=== PATIENT | female | born 1985 | race Caucasian/White ===

== ENCOUNTER 2019-12-18 09:18 | Outpatient (CLI) | payer OTHER | END 2019-12-18 09:22 | disposition home or self-care (01) | LOC: LAB 09:18 | PROVIDERS: ATTEND Emergency Medicine Pediatric Emergency Medicine | DX: Z03.818 Encounter for observation for suspected exposure to other biological agents ruled out (principal) ==

== ENCOUNTER 2020-06-03 14:22 | Outpatient (CLI) | payer OTHER | END 2020-06-03 14:31 | disposition home or self-care (01) | LOC: LAB 14:22 | PROVIDERS: ATTEND Pediatrics Neonatal-Perinatal Medicine | DX: Z32.00 Encounter for pregnancy test, result unknown (principal) ==

== ENCOUNTER 2020-09-04 23:26 | Emergency (ER) | payer OTHER ==
[~2020-09-04] VITALS: Ht 162.6 cm; Wt 79.8 kg
[2020-09-04] MEDS ORDERED: PRENATAL 19 CH1 EAC1 (23:44)
[2020-09-05] MEDS ORDERED: ACETAMINOPHEN650 M2 PO (04:34)
[2020-09-05] MEDS ORDERED: MACROBID 100 M100 MG PO (04:34)
== END 2020-09-05 04:43 | disposition home or self-care (01) ==
LOC: ER 23:26
DX: O23.42 Unspecified infection of urinary tract in pregnancy, second trimester (principal); M54.5 Low back pain; Z34.82 Encounter for supervision of other normal pregnancy, second trimester

== ENCOUNTER 2021-02-02 05:50 | Inpatient (IN) | payer OTHER ==
[~2021-02-02] VITALS: Ht 165.1 cm; Wt 86.2 kg
[~2021-02-02 05:50] MED LIST: ACETAMINOPHEN650 M2 PO; MACROBID 100 M100 MG PO; PRENATAL 19 CH1 EAC1
[2021-02-03] MEDS ORDERED: FUROSEMIDE20 MG (15:48)
== END 2021-02-04 14:29 | disposition home or self-care (01) | DRG 807 ==
LOC: LDR 05:50 → OB/GYN 02-03 14:19
PROVIDERS: ADMIT Obstetrics & Gynecology; ATTEND Obstetrics & Gynecology
PROC: 10E0XZZ Delivery of Products of Conception, External Approach (ICD-10-PCS; principal; 2021-02-02)
PROC: 3E033VJ Introduction of Other Hormone into Peripheral Vein, Percutaneous Approach (ICD-10-PCS; 2021-02-02)
PROC: 4A1HXFZ Monitoring of Products of Conception, Cardiac Rhythm, External Approach (ICD-10-PCS; 2021-02-02)
DX: O80 Encounter for full-term uncomplicated delivery (principal); Z37.0 Single live birth; Z3A.39 39 weeks gestation of pregnancy